=== PATIENT | female | born 1970 ===

== ENCOUNTER 2023-05-16 08:08 | Day surgery (SDC) | payer OTHER ==
[2023-05-16] MEDS ORDERED: MIDAZOLAM HCL 2 MG/2 ML VIAL IV ONE (11:30)
[2023-05-16] MEDS ORDERED: fentaNYL CITRATE 50 MCG/ML AMPUL IV PUSH ONE (11:30)
== END 2023-05-16 13:35 | disposition home or self-care (01) ==
LOC: AMB-ENDOS 08:08 → EDBD 13:30 → AMB-ENDOS 13:35
PROVIDERS: ATTEND Colon & Rectal Surgery
DX: K63.5 Polyp of colon (principal)